=== PATIENT | female | born 1960 | race Asian ===

== ENCOUNTER 2018-12-09 08:55 | Emergency (ER) | payer OTHER ==
[2018-12-09 09:03] VITALS: BP 159/93; TEMP 97.9; BMI 21.9
[2018-12-09] MEDS ORDERED: SODIUM CHLORIDE 1,000 ML IV STA (09:33)
[2018-12-09] MEDS ORDERED: ACETAMINOPHEN 1000 MG/100 ML VIAL (NON FORMULARY) IVPB ONE (09:33)
--- NOTE | 2018-12-09 09:55 | PDOC ---
Attending Attestation - Resident Resident Name: Fallon Tilley - ED Attending Attestation I have performed the following: I have examined & evaluated the patient, The case was reviewed & discussed with the resident, I agree w/resident's findings & plan, Exceptions are as noted - HPI HPI: 12/09/18 09:38 58 F with no PMH presents to ED with abdominal pain and constipation. Pt reports being constipated x 1 week. This morning, she had a BM and subsequently began to experience RLQ pain. Denies F/C. Denies N/V/D. Pt was evaluated by Dr. Pires this AM, who found her to have rebound tenderness in RLQ. Pt was given toradol for pain and sent to ED for further evaluation. - Physicial Exam PE: 12/09/18 09:55 GENERAL: Awake, alert, and fully oriented, in no acute distress. HEAD: No signs of trauma EYES: PERRLA, EOMI, sclera anicteric, conjunctiva clear ENT: Auricles normal inspection, hearing grossly normal, nares patent, oropharynx clear without exudates. Moist mucosa NECK: Nontender, no stepoffs, Normal ROM, supple, no lymphadenopathy, JVD, or masses LUNGS: Breath sounds equal, clear to auscultation bilaterally. No wheezes, and no crackles HEART: Regular rate and rhythm, normal S1 and S2, no murmurs, rubs or gallops ABDOMEN: + RLQ TTP, No guarding, no rebound. No masses EXTREMITIES: Normal range of motion, no edema. No clubbing or cyanosis. No cords, erythema, or tenderness NEUROLOGICAL: Cranial nerves II through XII intact. 5/5 strength and sensation in all extremities, Normal speech, normal gait, normal cerebellar function SKIN: Warm, Dry, normal turgor, no rashes or lesions noted. - Medical Decision Making 12/09/18 09:56 58 F with RLQ tenderness. Will obtain CT to r/o appy. - Labs - CTAP - IVF, tylenol 12/09/18 11:[address] shows R ureteral stone UA with + blood, no UTI Pt reassessed - pain is well controlled. Will DC with pain medication and urology f/u Pt is well appearing, with normal vitals. Clinically stable for DC at this time. I discussed the physical exam findings, ancillary test results and final diagnoses with the patient. I answered all of the patient's questions. The patient was satisfied with the care received and felt comfortable with the discharge plan and treatment plan. The patient agrees to follow up with the primary care physician within 24-72 hours.
[2018-12-09 09:56] LABS: BASO % 0.2 % (0-2.0); EOS % 0.3 % (0-4.5); HEMATOCRIT 41.8 % (32.4-45.2); HEMOGLOBIN 14.7 GM/dL (10.7-15.3); LYMPH % 12.6 % (8-40); MCH 31.5 pg (25.7-33.7); MCHC 35.2 g/dl (32.0-36.0); MEAN CELL VOLUME 89.3 fl (80-96); MONO % 2.7 % (3.8-10.2); NEUT % 84.2 % (42.8-82.8); PLATELET COUNT 273 K/MM3 (134-434); RBC 4.68 M/mm3 (3.60-5.2); RDW 13.3 % (11.6-15.6)
[2018-12-09] MEDS ORDERED: ACETAMINOPHEN INJECTION 100 ML IVPB ONE (09:59)
--- NOTE | 2018-12-09 10:03 | PDOC ---
History of Present Illness - General Chief Complaint: Pain, Acute Stated Complaint: LOWER ABD PAIN Time Seen by Provider: 12/09/18 09:23 History Source: Patient Exam Limitations: No Limitations - History of Present Illness Initial Comments: 12/09/18 09:50 [id number] without PMH who p/w 1 week of constipation, and onset of non-radiating RLQ pain this morning which awakened her from sleep. She notes having gone to the bathroom (defacated) and this made the pain worse, and also had worsened pain with bending/twisting motions. She had a transient episode of lightheadedness and nausea at the point where her pain worsened this morning. Other than this transient episode, she denies any additional symptoms (no f/c/n/ v/d/c, black/bloody stool, rash, back pain, falls/injuries, etc). She has never had pain like this before. 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 Past History - Past Medical History Allergies/Adverse Reactions: Allergies Allergy/AdvReac Type Severity Reaction Status Date / Time No Known Allergies Allergy Verified 12/10/18 07:31 Home Medications: Ambulatory Orders Amlodipine Bes/Olmesartan Med [Delmy 5-20 mg Tablet] 1 each PO DAILY 12/09/18 Naproxen 500 mg PO BID PRN #30 tablet 12/09/18 Ondansetron [Zofran Odt -] 4 mg SL BID #14 od.tablet 12/10/18 Oxycodone HCl/Acetaminophen [Percocet 5-325 mg Tablet] 1 tab PO Q6H #10 tablet MDD 3 12/10/18 COPD: No - Suicide/Smoking/Psychosocial Hx Smoking History: Current every day smoker Number of Cigarettes Smoked Daily: 4 Information on smoking cessation initiated: Yes Hx Alcohol Use: No Drug/Substance Use Hx: No Review of Systems - Review of Systems Able to Perform ROS?: Yes Comments:: 12/09/18 10:05 GEN: no fever, chills, malaise, generalized weakness, or weight change HEENT: no ear pain, sore throat, vision change, or eye pain CV: no chest pain, palpitations, lightheadedness, syncope, or edema RESP: no cough, wheezing, or SOB GI: abdominal pain, constipation, no nausea, vomiting, diarrhea, or white/black/ bloody stool : no dysuria, hematuria, incontinence, retention, bleeding, or discharge MSK: no neck/back pain, muscle weakness/pain, or joint swelling/pain NEURO: no headache, seizure, vertigo, numbness, tingling, or focal weakness PSYCH: no substance use, no behavior change SKIN: no jaundice, no rash ROS otherwise negative except as noted in HPI *Physical Exam - Vital Signs Last Vital Signs Temp Pulse Resp BP Pulse Ox 97.9 F 8 L 20 159/93 99 12/09/18 08:59 12/09/18 08:59 12/09/18 08:59 12/09/18 08:59 12/09/18 08:59 - Physical Exam Comments: 12/09/18 10:06 GENERAL: nontoxic-appearing, A/Ox4, no distress but slightly uncomfortable appearing, answers questions appropriately HEENT: PERRLA, EOMI, moist mucous membranes NECK/BACK: no midline ttp, no spinal stepoff or deformity, no hematoma, full ROM , neck supple CARDIOVASCULAR: regular rate/rhythm, normal S1S2, no MGR, strong peripheral pulses, capillary refill <2 seconds, extremities wwp, no edema LUNGS/RESPIRATORY: no respiratory distress, CTAB GI/ABDOMEN: symmetric pyww-st-ctno, normoactive BS, soft, mild low RLQ ttp with mild rebound tenderness, no midline pulsatile masses : no CVA tenderness EXTREMITIES: no muscle atrophy, no acute deformity SKIN: warm and dry, no pallor, no jaundice, no rash, no bruising, no skin breakdown, no cuts, no lesions NEUROLOGICAL: GCS 15, CN II-XII grossly intact, 5/5 strength proximally and distally, no facial droop ED Treatment Course - LABORATORY CBC & Chemistry Diagram: 12/09/18 09:40 12/09/18 09:40 - RADIOLOGY Radiology Studies Ordered: Category Date Time Status ABDOMEN & PELVIS CT WITH CONTR [CT] Stat CT Scan 12/09/18 09:35 Ordered Medical Decision Making - Medical Decision Making 12/09/18 10:03 Adult female Pt p/w RLQ pain. Initial Vital Signs Temp Pulse Resp BP Pulse Ox 97.9 F 8 L 20 159/93 99 12/09/18 08:59 12/09/18 08:59 12/09/18 08:59 12/09/18 08:59 12/09/18 08:59 Exam: As noted in Physical Exam section. DDX IBNLT: UTI/pyelonephritis, renal colic, ovarian torsion, ovarian cyst, ectopic , PID, TOA, endometritis, salpingitis, oophoritis, Leroy-Son- Jareth syndrome (if involving liver capsule ACS, AAA/AD, malignancy, hernia, cholecystitis, pancreatitis, gastritis, PUD, appendicitis, diverticulitis wwo abscess or perforation, colitis, regional ileitis (Crohns disease), SBO, bowel ischemia, bowel perforation, constipation, musculoskeletal, primary dysmenorrhea , endometriosis, fibroids, etc. W/U ordered: Labs as noted below, CTAP with IV contrast TX ordered: IVF, Ofirmev Laboratory Tests 12/09/18 12/09/18 12/09/18 09:40 09:40 09:40 WBC 9.0 RBC 4.68 Hgb 14.7 Hct 41.8 MCV 89.3 MCH 31.5 MCHC 35.2 RDW 13.3 Plt Count 273 MPV 7.0 L Absolute Neuts (auto) 7.6 Neutrophils % 84.2 H Lymphocytes % 12.6 Monocytes % 2.7 L Eosinophils % 0.3 Basophils % 0.2 Nucleated RBC % 0 Sodium 141 Potassium 3.9 Chloride 109 H Carbon Dioxide 27 Anion Gap 5 L BUN 12 Creatinine 0.8 Creat Clearance w eGFR 73.93 Random Glucose 128 H Calcium 8.8 Total Bilirubin 0.4 AST 18 ALT 28 Alkaline Phosphatase 92 Total Protein 7.1 Albumin 4.2 Lipase 135 Urine Color Yellow Urine Appearance Clear Urine pH 7.5 Ur Specific [place] 1.016 Urine Protein Negative Urine Glucose (UA) Negative Urine Ketones Negative Urine Blood 2+ H Urine Nitrite Negative Urine Bilirubin Negative Urine Urobilinogen 0.2 Ur Leukocyte Esterase Negative Urine WBC (Auto) 2 Urine RBC (Auto) 47 Urine Casts (Auto) 1 U Epithel Cells (Auto) 1.5 Urine Bacteria (Auto) 2.[address] WITH CONTR Clinical history: Right lower quadrant pain. Rule out appendicitis in 58-year-old female. Comparison: None. Contiguous transaxial images were obtained from the diaphragmatic domes and pubic symphysis after the administration of IV contrast. Sagittal and coronal reconstructions were performed. Lung bases: Atelectasis. Bone: Mild osteopenia and vertebral degenerative changes. Liver: There is hepatomegaly with a fatty liver. Gallbladder: Negative. Biliary tree: Negative. Spleen: Negative. Pancreas: Negative. Adrenals: Negative. Kidneys: Mild right hydronephrosis and perirenal stranding. Hydroureter to a 3-4 mm mid right ureteral calculus. Pelvis: Negative. Bowel: Negative. Normal-appearing appendix. Other: Small hiatal hernia. Umbilical hernia with fat. Impression: Normal-appearing appendix. Mild right hydronephrosis and hydroureter to a 3 to 4 mm mid right ureteral calculus. Hepatomegaly with a fatty liver. Other findings as above. Clinical correlation advised. Reassessment: Patient states she is feeling better, pain tolerable, wants to go home. Vital Signs Temperature 97.9 F 12/09/18 08:59 Pulse Rate 78 12/09/18 10:00 Respiratory Rate 20 12/09/18 08:59 Blood Pressure 159/93 12/09/18 08:59 O2 Sat by Pulse Oximetry (%) 99 12/09/18 08:59 DISCHARGE This patient has gotten significant relief of symptoms while in the ED. On last reassessment, vitals are wnl, pain is reasonably controlled, and exam is benign. Workup is not concerning for emergency-level pathology at this time. This patient is appropriate for discharge with close outpatient follow up. The Pt is comfortable with this plan and will follow up with their primary care provider in 1-3 days. Referral information for Urologist interventional sale consultant is given. She will take Motrin and/or Tylenol for pain. Specific return precautions are discussed and they will come back to the ER if necessary. *DC/Admit/Observation/Transfer Diagnosis at time of Disposition: Ureteral stone with hydronephrosis - Discharge Dispostion Disposition: HOME Condition at time of disposition: Stable Decision to Admit order: No - Prescriptions Prescriptions: Naproxen 500 mg PO BID PRN #30 tablet PRN Reason: Pain - Referrals Referrals: Colt Perez MD [Staff Physician] - - Patient Instructions Printed Discharge Instructions: DI for Kidney Stones Additional Instructions: You were seen in the ER for a kidney stone that is trying to pass. We did laboratory tests on your urine and found blood in the urine, which is common with kidney stones. We did a CT scan which We did not see signs of an infection in the urine or on your vital signs. We gave you medications and IV fluids which helped your symptoms. After our assessment, we do not believe you are having a medical emergency at this time, and we believe you are safe to go home. 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 Please follow up with your primary care provider in 1-3 days. Call their clinic [facility], tell them you were seen in the ER, and tell them you need an appointment. Please come back to the ER at any time, 24 hours a day, for any new or worsening symptoms, like worsening pain unrelieved with medications, fever, inability to urinate, burning on urination, or other symptoms. If you are having severe or life threatening symptoms, or symptoms that make it unsafe to drive or have someone drive you, please call 911. - Post Discharge Activity
[2018-12-09 10:22] LABS: ALBUMIN 4.2 g/dl (3.4-5.0); ALK PHOS 92 U/L (45-117); ANION GAP 5 MMOL/L (8-16); BILIRUBIN,TOTAL 0.4 mg/dL (0.2-1); BLOOD UREA NITROGEN 12 mg/dL (7-18); CALCIUM 8.8 mg/dL (8.5-10.1); CHLORIDE 109 mmol/L (98-107); CO2 27 mmol/L (21-32); CREATININE 0.8 mg/dL (0.55-1.3); GLUCOSE,RANDOM 128 mg/dL (74-106); LIPASE 135 U/L (73-393); POTASSIUM 3.9 mmol/L (3.5-5.1); SGOT/AST 18 U/L (15-37); SGPT/ALT 28 U/L (13-61); SODIUM 141 mmol/L (136-145); TOT PROT 7.1 g/dl (6.4-8.2)
[2018-12-09 11:14] LABS: EPI CELLS 1.5 /HPF (0-5); HYALINE CASTS 1 /hpf (0-8); PH,URINE 7.5 (5.0-8.0); URINE APPEARANCE CLEAR; URINE BACTERIA 2.016 /hpf (NEGATIVE); URINE BILIRUBIN NEGATIVE (NEGATIVE); URINE COLOR YELLOW; URINE GLUCOSE (UA) NEGATIVE (NEGATIVE); URINE KETONE NEGATIVE (NEGATIVE); URINE LEUK ESTERASE NEGATIVE (NEGATIVE); URINE NITRITE NEGATIVE (NEGATIVE); URINE PROTEIN NEGATIVE (NEGATIVE); URINE RBC 47 /hpf (0-4); URINE UROBILINOGEN 0.2 mg/dL (0.2-1.0); URINE WBC 2 /hpf (0-5)
[2018-12-09 13:58] VITALS: PULSE 78
--- NOTE | 2018-12-09 21:59 | EKG ---
Test Reason : Blood Pressure : / mmHG Vent. Rate : 072 BPM Atrial Rate : 072 BPM P-R Int : 132 ms QRS Dur : 072 ms QT Int : 386 ms P-R-T Axes : 012 039 042 degrees QTc Int : 422 ms NORMAL SINUS RHYTHM NORMAL ECG NO PREVIOUS ECGS AVAILABLE Confirmed by MD VERONIAC, MATT ([id number]) on 12/09/2018 9:59:32 PM Referred By: Confirmed By:MATT MARTIN MD
== END 2018-12-09 12:00 | disposition home or self-care (01) ==
LOC: JER 08:55
PROC: 3E033NZ Introduction of Analgesics, Hypnotics, Sedatives into Peripheral Vein, Percutaneous Approach (ICD-10-PCS; principal; 2018-12-09)
DX: N13.2 Hydronephrosis with renal and ureteral calculous obstruction (principal); F17.210 Nicotine dependence, cigarettes, uncomplicated
CPT/HCPCS: 36415; 74177-TC; 80053; 81003; 83690; 85025; 87086; 93005; 93010; 96374; 99284-25; J0131; J7030

== ENCOUNTER 2018-12-10 07:12 | Emergency (ER) | payer OTHER ==
[2018-12-10 07:39] VITALS: TEMP 98.5; BMI 21.9
--- NOTE | 2018-12-10 08:16 | PDOC ---
History of Present Illness - General History Source: Patient Exam Limitations: No Limitations - History of Present Illness Initial Comments: 12/10/18 09:35 The patient is a 58 year old female, with a significant past medical history of recent kidney stone diagnosis, who presents to the emergency department with, 8/ 10 right flank pain. As per patient, she was evaluated in the emergency department yesterday and was diagnosed with a 3-4 mm mid-right ureteral calculus at which time she was discharged on Naproxen which has helped minimally. She notes taking Naproxen 2 hours prior to her arrival with minimal relief, prompting her arrival to the emergency department. She denies recent fevers, chills, headache or dizziness. She denies recent nausea, vomit, diarrhea or constipation. She denies recent dysuria, frequency, urgency or hematuria. She denies recent chest pain or shortness of breath. Allergies: NKDA Past surgical history: None reported. Social history: Smoker (4 cigarettes/day). Denies recreational drug use. GI: Dr. Pires <Donald Bridges - Last Filed: 12/10/18 09:35> <Albert Wood - Last Filed: 12/10/18 12:43> - General Chief Complaint: Pain, Acute Stated Complaint: KIDNEY STONES Time Seen by Provider: 12/10/18 08:16 Past History <Donald Bridges - Last Filed: 12/10/18 09:35> - Past Medical History COPD: No - Suicide/Smoking/Psychosocial Hx Smoking History: Current every day smoker Number of Cigarettes Smoked Daily: 4 Information on smoking cessation initiated: No Hx Alcohol Use: No Drug/Substance Use Hx: No <Albert Wood - Last Filed: 12/10/18 12:43> - Past Medical History Allergies/Adverse Reactions: Allergies Allergy/AdvReac Type Severity Reaction Status Date / Time No Known Allergies Allergy Verified 12/10/18 07:31 Home Medications: Ambulatory Orders Amlodipine Bes/Olmesartan Med [Delmy 5-20 mg Tablet] 1 each PO DAILY 12/09/18 Naproxen 500 mg PO BID PRN #30 tablet 12/09/18 Ondansetron [Zofran Odt -] 4 mg SL BID #14 od.tablet 12/10/18 Oxycodone HCl/Acetaminophen [Percocet 5-325 mg Tablet] 1 tab PO Q6H #10 tablet MDD 3 12/10/18 Review of Systems - Review of Systems Able to Perform ROS?: Yes Comments:: 12/10/18 09:36 CONSTITUTIONAL: No fever, no chills, no fatigue EYES: No visual changes ENT: No ear pain, no sore throat CARDIOVASCULAR: No chest pain, no palpitations RESPIRATORY: No cough, no SOB GI: No abdominal pain, no nausea, no vomiting, no constipation, no diarrhea GENITOURINARY: No dysuria, no frequency, no hematuria MUSKULOSKELETAL: +Right flank pain. No joint pain, no myalgias SKIN: No rash NEURO: No headache All Other Systems: Reviewed and Negative <Donald Bridges - Last Filed: 12/10/18 09:35> *Physical Exam - Vital Signs Last Vital Signs Temp Pulse Resp BP Pulse Ox 98.5 F 74 20 149/91 97 12/10/18 07:31 12/10/18 07:31 12/10/18 07:31 12/10/18 07:31 12/10/18 07:31 - Physical Exam Comments: 12/10/18 09:36 CONSTITUTIONAL: Well-appearing; well-nourished; in no apparent distress HEAD: Normocephalic; atraumatic EYES: PERRL; EOM intact ENMT: External appears normal; normal oropharynx NECK: Supple; non-tender; no cervical lymphadenopathy CARD: Normal S1, S2; no murmurs, rubs, or gallops RESP: Normal chest excursion with respiration; breath sounds clear and equal bilaterally; no wheezes, rhonchi, or rales ABD: Soft, non-distended; non-tender; no palpable organomegaly, no palpable hernias BACK: +Right CVA tenderness. EXT: Normal ROM in all four extremities; non-tender to palpation; distal pulses intact SKIN: Warm, dry, no rash NEURO: No focal neurological deficiencies. <Donald Bridges - Last Filed: 12/10/18 09:35> - Vital Signs Last Vital Signs Temp Pulse Resp BP Pulse Ox 98.5 F 74 20 149/91 97 12/10/18 07:31 12/10/18 07:31 12/10/18 07:31 12/10/18 07:31 12/10/18 07:31 <Albert Wood - Last Filed: 12/10/18 12:43> ED Treatment Course - LABORATORY CBC & Chemistry Diagram: 12/10/18 09:02 12/10/18 09:02 - ADDITIONAL ORDERS Additional order review: 12/10/18 09:02 RBC 4.78 MCV 88.6 MCHC 35.1 RDW 13.2 MPV 6.9 L Neutrophils % 81.5 Lymphocytes % 15.3 D Monocytes % 2.7 L Eosinophils % 0.3 Basophils % 0.2 - Medications Given in the ED: ED Medications Discontinued Medications Generic Name Dose Route Start Last Admin Trade Name Freq PRN Reason Stop Dose Admin Sodium Chloride 1,000 mls @ 1,000 mls/hr 12/10/18 08:30 12/10/18 09:21 Normal Saline - IV 12/10/18 09:29 1,000 mls/hr ASDIR STA Administration Morphine Sulfate 4 mg 12/10/18 08:30 12/10/18 09:20 Morphine Injection - IVPUSH 12/10/18 08:31 4 mg ONCE ONE Administration Ondansetron HCl 8 mg 12/10/18 08:30 12/10/18 09:22 Zofran Injection IVPB 12/10/18 08:31 8 mg ONCE ONE Administration <Donald Bridegs - Last Filed: 12/10/18 09:35> - LABORATORY CBC & Chemistry Diagram: 12/10/18 09:02 12/10/18 09:02 <Albert Wood - Last Filed: 12/10/18 12:43> Medical Decision Making - Medical Decision Making 12/10/18 12:37 58-year-old female who was recently diagnosed with right hydronephrosis due to 3 -4 mm right ureteral stone presents to the ER for recurrent pain and nausea not effectively controlled by by mouth naproxen. Patient is afebrile with stable vital signs. CBC reveals no significant leukocytosis. CMP reveals normal BUN and creatinine. Urinalysis reveals no evidence of pyuria. Kidney ultrasound shows small amount of free fluid in Morison's pouch but no evidence of hydronephrosis, fullness of the right ureteropelvic junction is noted. After administration of 4 mg morphine, patient is asymptomatic and pain free. She tolerates by mouth. Case discussed with Dr. Kahn of urology. Will discharge with outpatient follow-up. <Albert Wood - Last Filed: 12/10/18 12:43> *DC/Admit/Observation/Transfer - Attestations Scribe Attestion: 12/10/18 09:37 Documentation prepared by Donald Bridges, acting as emergency medical technician/driver for Albert Wood MD. <Donald Bridges - Last Filed: 12/10/18 09:35> <Albert Wood - Last Filed: 12/10/18 12:43> Diagnosis at time of Disposition: Kidney stone, Nausea - Discharge Dispostion Disposition: HOME Condition at time of disposition: Stable - Referrals Referrals: Christopher Kahn MD [Staff Physician] - - Patient Instructions Printed Discharge Instructions: DI for Kidney Stones
[2018-12-10] MEDS ORDERED: morphine CARPU-JECT 4 MG/1 ML DISP.SYRIN IVPUSH ONE (08:30)
[2018-12-10] MEDS ORDERED: ONDANSETRON 4 MG/2 ML VIAL IVPB ONE (08:30)
[2018-12-10] MEDS ORDERED: SODIUM CHLORIDE 1,000 ML IV STA (08:30)
[2018-12-10] MEDS ORDERED: morphine SULFATE 4 MG/ML VIAL ONE (08:44)
[2018-12-10] MEDS ORDERED: ONDANSETRON 4 MG/2 ML VIAL ONE (08:45)
[2018-12-10 09:14] LABS: BASO % 0.2 % (0-2.0); EOS % 0.3 % (0-4.5); HEMATOCRIT 42.4 % (32.4-45.2); HEMOGLOBIN 14.9 GM/dL (10.7-15.3); LYMPH % 15.3 % (8-40); MCH 31.1 pg (25.7-33.7); MCHC 35.1 g/dl (32.0-36.0); MEAN CELL VOLUME 88.6 fl (80-96); MEAN PLT VOLUME 6.9 fl (7.5-11.1); MONO % 2.7 % (3.8-10.2); NEUT % 81.5 % (42.8-82.8); PLATELET COUNT 283 K/MM3 (134-434); RBC 4.78 M/mm3 (3.60-5.2); RDW 13.2 % (11.6-15.6); WHITE BLOOD COUNT 7.4 K/mm3 (4.0-10.0)
[2018-12-10 09:49] LABS: ALBUMIN 4.7 g/dl (3.4-5.0); ALK PHOS 91 U/L (45-117); ANION GAP 6 MMOL/L (8-16); BILIRUBIN,TOTAL 0.4 mg/dL (0.2-1); BLOOD UREA NITROGEN 9 mg/dL (7-18); CALCIUM 9.5 mg/dL (8.5-10.1); CHLORIDE 108 mmol/L (98-107); CO2 26 mmol/L (21-32); GLUCOSE,RANDOM 133 mg/dL (74-106); POTASSIUM 4.7 mmol/L (3.5-5.1); SGOT/AST 14 U/L (15-37); SGPT/ALT 28 U/L (13-61); SODIUM 140 mmol/L (136-145); TOT PROT 7.5 g/dl (6.4-8.2)
[2018-12-10 11:27] LABS: EPI CELLS 0.3 /HPF (0-5); HYALINE CASTS 0 /hpf (0-8); URINE APPEARANCE CLEAR; URINE BACTERIA 2.5 /hpf (NEGATIVE); URINE BILIRUBIN NEGATIVE (NEGATIVE); URINE COLOR YELLOW; URINE GLUCOSE (UA) NEGATIVE (NEGATIVE); URINE KETONE NEGATIVE (NEGATIVE); URINE LEUK ESTERASE NEGATIVE (NEGATIVE); URINE NITRITE NEGATIVE (NEGATIVE); URINE PROTEIN NEGATIVE (NEGATIVE); URINE RBC 77 /hpf (0-4); URINE UROBILINOGEN 0.2 mg/dL (0.2-1.0); URINE WBC 1 /hpf (0-5)
[2018-12-10 13:41] VITALS: BP 96/55; PULSE 60
== END 2018-12-10 13:43 | disposition home or self-care (01) ==
LOC: JER 07:12
PROC: 3E033NZ Introduction of Analgesics, Hypnotics, Sedatives into Peripheral Vein, Percutaneous Approach (ICD-10-PCS; principal; 2018-12-10)
PROC: 3E033GC Introduction of Other Therapeutic Substance into Peripheral Vein, Percutaneous Approach (ICD-10-PCS; 2018-12-10)
PROC: 3E0337Z Introduction of Electrolytic and Water Balance Substance into Peripheral Vein, Percutaneous Approach (ICD-10-PCS; 2018-12-10)
DX: N20.0 Calculus of kidney (principal); R11.0 Nausea; F17.210 Nicotine dependence, cigarettes, uncomplicated
CPT/HCPCS: 36415; 76775-TC; 80053; 81003; 85025; 87086; 96361; 96374; 96375; 99281-25; J7030